=== PATIENT | male | born 1980 ===

== ENCOUNTER 2016-09-30 09:50 | Day surgery (SDC) | payer OTHER ==
--- NOTE | 2016-09-23 15:35 | HP ---
PREOPERATIVE HISTORY AND PHYSICAL: DATE OF ADMISSION/SURGERY: 09/30/16 [facility] DATE OF OFFICE VISIT/ENCOUNTER: 09/22/16 ATTENDING SURGEON: Cindi Reno MD PROCEDURE: Right wrist carpal tunnel release; excision, mass. CHIEF COMPLAINT: Numbness and tingling, right wrist; painful mass, right forearm. HISTORY OF PRESENT ILLNESS: This is a 36-year-old inmate at [facility] who complains of numbness and tingling in his right hand for 4 years. He also complains of a painful mass in the distal aspect of his right forearm. It bothers him to lift things or pull things. He feels better when he relaxes his arm. The numbness and tingling in his hand has become quite bothersome and occasionally awakens him at night. He has tried using a brace for this, but it has not given him any relief. He has had a nerve conduction study which showed mild carpal tunnel syndrome on the right. The patient is interested in pursuing surgical intervention for both of these problems at this time. PAST MEDICAL HISTORY: Unremarkable. PAST SURGICAL HISTORY: None. MEDICATIONS: Motrin p.r.n. pain. ALLERGIES: No known drug allergies. The patient has an allergy to SEAFOOD. FAMILY MEDICAL HISTORY: Colon cancer. SOCIAL HISTORY: The patient is an inmate at [facility]. He is a smoker, half a pack per day for 10 plus years. He denies illicit drug use and denies alcohol use. REVIEW OF SYSTEMS: General: Negative for fevers, chills, or night sweats. No known anesthesia problems. HEENT: Negative for headache, lightheadedness, or syncopal episodes. Integumentary: Negative for abrasions, lesions, or open wounds. Cardiothoracic: Negative for hypertension, chest pain, palpitations, and edema. Pulmonary: Negative for shortness of breath with exertion, chronic cough, or COPD. GI: Negative for nausea, vomiting, diarrhea, constipation, or GERD. : Negative for nocturia, urinary frequency, urgency, history of UTIs, or kidney problems. Musculoskeletal: Positive for current complaint. Negative for chronic or intermittent back pain or history of fractures. Neurological: Negative for history of seizure, stroke, or epilepsy. Endocrine : Negative for diabetes or thyroid issues. Hematologic: Negative for easy bruising, anemia, excessive bleeding, or history of DVT. Infectious Disease: Negative for history of MRSA, hepatitis C, or HIV. PHYSICAL EXAMINATION GENERAL: Well-developed, well-nourished, 36-year-old male in no acute distress. VITAL SIGNS: Height 5 feet 7 inches, weight 200 pounds. Pulse rate 82, blood pressure 138/84. HEENT: Normocephalic, atraumatic. Pupils are equal, round, and reactive to light and accommodation. Extraocular movements are intact. NECK: Supple. No palpable lymph nodes. Throat is clear. PULMONARY: Lungs are clear to auscultation bilaterally. No wheezes, rales, or rhonchi. CARDIOTHORACIC: Regular rate and rhythm. S1, S2. No murmurs, rubs, or gallops. No edema. ABDOMEN: Positive bowel sounds. Soft, nontender. NEUROLOGIC: Alert and oriented x3. Cranial nerves II through XII are intact. Sensation is intact to light touch. PERIPHERAL VASCULAR: 2+ radial and ulnar pulses. Negative Theron test. MUSCULOSKELETAL: On exam of the right upper extremity, he has a painful mass on the volar-ulnar aspect of the wrist that appears to be subcutaneous. He feels like a lipoma or flexor tenosynovitis. He has no atrophy noted in the right thenar eminence, but some weakness with thumb abduction. He has a positive Tinel's sign at the median nerve. He can fully flex and extend his fingers and has normal sensation to light touch throughout the right hand. IMAGING STUDIES: EMG/nerve conduction study shows mild carpal tunnel syndrome on the right. IMPRESSION: Right carpal tunnel syndrome; mass, right forearm. PLAN: The patient is scheduled to undergo a right wrist carpal tunnel release and excision, mass with Dr. Reno on 09/30/16. He will return to the office 10 to 14 days postop for followup and suture removal. It is recommended to his facility that he be prescribed Ultracet for postoperative pain management. STEVO BOYLE [id number]/[facility] #: [id number] MTDD
[~2016-09-30 09:50] MED LIST: Buffered Lidocaine 1% SYRIN* 3 ML/SYR SYRINGE INTRADERM ONE
[2016-09-30] MEDS ORDERED: Midazolam* 1 MG/ML 5 ML VIAL (5 MG) ONE (11:19)
[2016-09-30] MEDS ORDERED: fentaNYL* 50 MCG/ML 2 ML VIAL (100 MCG VIAL) ONE (11:19)
[2016-09-30] MEDS ORDERED: Midazolam* 1 MG/ML 2 ML VIAL (2 MG) ONE (11:35)
[2016-09-30 13:29] VITALS: BP 115/68
--- NOTE | 2016-09-30 22:55 | OP ---
DATE OF OPERATION: 09/30/16 [facility] DATE OF : 78 SURGEON: Cindi Reno MD AUTOMATED WEAVER: STEVO Jaime ANESTHESIOLOGIST: Hay Hodge DO ANESTHESIA: Local MAC. PRE-OP DIAGNOSES: Right carpal tunnel syndrome and right wrist mass. POST-OP DIAGNOSES: Right carpal tunnel syndrome and right wrist mass. OPERATIVE PROCEDURE: 1. Removal of right wrist mass. 2. Right carpal tunnel release. ESTIMATED BLOOD LOSS: Zero. TOURNIQUET TIME: About 25 minutes. INDICATIONS FOR PROCEDURE: Brandan is a 36-year-old male who has numbness and tingling in the median nerve distribution of his right hand and a painful mass on the distal volar aspect of his wrist. He presents for removal of the mass and carpal tunnel release. DESCRIPTION OF PROCEDURE: The patient was brought to the operating room. He was given a sedation anesthetic and a local infiltration of a total of 18 cc of 1% plain lidocaine on the volar aspect of his right wrist and in the palm of his hand. The skin of his right hand and forearm was prepped and draped in the usual sterile fashion. The hand and forearm were exsanguinated and tourniquet elevated to 250 mmHg. A longitudinal incision with Sanna incision across the wrist creases was made and we dissected sharply down to the transverse carpal ligament. The ligament was divided sharply with the knife and then more proximally with the scissors. There was a lipomatous mass between the ulnar nerve and the median nerve in the distal forearm. This was dissected out and sent for pathology. There was no tenosynovitis surrounding the tendons. The wound was irrigated and the skin edges were reapproximated with 4-0 Nylon suture. The syrup mixer assistant, STEVO Jaime, was essential to complete the case for retraction and protection of the nerves. The wound was dressed with Xeroform, 4x4, Webril, and Arthur wrap. The patient tolerated the procedure well and was brought to the recovery room in good condition. [id number]/[facility] #: [id number] [facility]
== END 2016-09-30 11:15 | disposition home or self-care (01) ==
LOC: OREAST 09:50
PROVIDERS: ATTEND Orthopaedic Surgery
DX: G56.01 Carpal tunnel syndrome, right upper limb (principal); D17.21 Benign lipomatous neoplasm of skin and subcutaneous tissue of right arm; F17.210 Nicotine dependence, cigarettes, uncomplicated
CPT/HCPCS: 88305; J2250; J3010